=== PATIENT | female | born 1940 | race Caucasian/White ===

== ENCOUNTER → 2024-07-11 12:42 | Outpatient (CLI) | payer OTHER, SELFPAY ==
--- NOTE | 2024-07-11 12:46 | DI.MRI.S_ITS ---
PROCEDURE: MR LUMBAR SPINE WO CON INDICATIONS: Lumbar stenosis TECHNIQUE: Noncontrast sagittal T1 spin echo and T2 fast echo, sagittal STIR, and T2 fast spin echo through the lumbar spine. In cases with scoliosis, additional coronal T2 fast spin echo may be performed. COMPARISON: Outside Film, MR, MR LUMBAR SPINE WITHOUT CONTRAST, 08/10/2023, 13:20. FINDINGS: Image quality: Diagnostic Alignment and Curvature: There is normal bony alignment. Bone Marrow: Marrow is of normal overall signal. No acute vertebral body compression fractures. Spinal Cord: Conus medullaris terminates at the L1 level. Visualized cord demonstrates normal signal and size. Paraspinous Soft Tissues: No paravertebral masses. T12-L1: Bilateral facet arthropathy. Mild disc space loss and degenerative endplate changes. Symmetric disc bulge. Mild spinal canal stenosis. Moderate bilateral neuroforaminal stenosis. L1-L2: At least moderate disc space loss at this level. Degenerative endplate changes. Moderate bilateral facet arthropathy. Moderate disc bulge which causes effacement of the subarticular zone bilaterally. There appears to be abutment of the traversing nerve root. Ligamentum flavum thickening. Mild spinal canal stenosis. There is now moderate right and severe left bilateral neuroforaminal stenosis. Findings have progressed in the interim. L2-L3: Moderate bilateral facet arthropathy and ligamentum flavum thickening. Mild epidural lipomatosis. Mild disc height loss with degenerative endplate changes. Moderate symmetric disc bulge. Effacement of the subarticular zones bilaterally. There is moderate right and moderate-severe left bilateral neuroforaminal stenosis. Findings are not significantly changed. L3-L4: Minimal disc space loss. Mild degenerative endplate changes. Moderate left greater than right bilateral facet arthropathy. Mild epidural lipomatosis. Moderate symmetric disc bulge. Findings result in moderate spinal canal stenosis with severe left and moderate right bilateral neuroforaminal stenosis. Findings have progressed. L4-L5: Moderate-severe bilateral facet arthropathy. Mild disc space loss. Mild degenerative endplate changes. Prominent symmetric disc bulge. There is mild-moderate disc space loss. Mild degenerative endplate changes. There is moderate spinal canal stenosis. There is severe right and moderate left bilateral neuroforaminal stenosis. Findings have not significantly changed at this level. L5-S1: Minimal disc height loss. Moderate bilateral facet arthropathy. Eccentric to the right disc bulge. There is effacement of the right subarticular and foraminal zones. Mild-moderate degenerative endplate changes. Combination of findings result in no significant spinal canal stenosis. There is moderate left and moderate-severe right bilateral neuroforaminal stenosis. Findings have slightly progressed. IMPRESSION: Lumbar spine without acute abnormalities. Moderate-severe multilevel, multifactorial lumbar spondylosis as described above by vertebral body level. There has been mild progression of degenerative changes at L1-2, L3-4, and L5-S1. No significant changes noted at L2-3 and L4-5. Dictated by: Jeremie Bernal M.D. on 07/15/2024 at 0:37 Approved by: Jeremie Bernal M.D. on 07/15/2024 at 0:58
== END ==
PROVIDERS: PCP Family Medicine; Referring Provider Orthopaedic Surgery; Visit Provider Orthopaedic Surgery
DX: M48.062 Spinal stenosis, lumbar region with neurogenic claudication (principal); M47.816 Spondylosis without myelopathy or radiculopathy, lumbar region; M47.817 Spondylosis without myelopathy or radiculopathy, lumbosacral region
CPT/HCPCS: 72148

== ENCOUNTER → 2024-08-13 09:13 | Outpatient (CLI) | payer OTHER, SELFPAY ==
--- NOTE | 2024-08-13 | DI.MRI.S_ITS ---
PROCEDURE: MR CERVICAL SPINE WO/W CON INDICATIONS: [employer] TECHNIQUE: Noncontrast sagittal T1 spin echo and T2 fast spin echo, sagittal STIR, foraminal oblique sagittal T2 fast spin echo, axial gradient echo or T2 fast spin echo through the cervical spine. After the administration of contrast, axial and sagittal T1 spin echo with fat saturation through the cervical spine. COMPARISON: None. FINDINGS: Image quality: Excellent. Alignment and curvature: There is trace, approximately 3 millimeters of C2-C3 anterolisthesis. There is straightening normal cervical spine curvature. Marrow: Marrow is normal in overall signal, without suspicious enhancement. Spinal cord: Visualized spinal cord has normal size and signal. No cerebellar tonsillar herniation. No abnormal intramedullary enhancement. Paraspinous soft tissues: No paravertebral masses or suspicious enhancement. C2-3: Loss of disc signal. Mild left facet hypertrophy. No central stenosis. No neural foraminal narrowing. Vertebral artery vascular loop courses into the left neural foramen. No neural compression. C3-4: Loss of disc signal and mild loss of disc height. Mild, diffuse disc bulge. Mild bilateral uncovertebral hypertrophy. No central stenosis. Mild bilateral neural foraminal narrowing. No neural compression. C4-5: Loss of disc signal and height. Moderate, diffuse disc bulge. Mild bilateral facet hypertrophy. Moderate to severe narrowing of the central canal with slight compression of the cervical spinal cord. Moderate right and mild left neural foraminal narrowing. C5-6: Loss of disc signal and height. Moderate, diffuse disc bulge. Moderate-sized left central disc protrusion. Severe narrowing of the central canal with compression of the cervical spinal cord. Mild bilateral facet hypertrophy. Moderate bilateral uncovertebral joint hypertrophy. Mild to moderate bilateral neural foraminal narrowing. C6-7: Loss of disc signal and height. Moderate, diffuse disc bulge. Moderate to severe narrowing of the central canal with slight compression of the cervical spinal cord. Mild bilateral facet hypertrophy. Moderate bilateral uncovertebral joint hypertrophy. Mild to moderate right and severe left neural foraminal narrowing with compression of the exiting right C7 nerve root. C7-T1: Loss of disc signal. No central stenosis. No neural foraminal narrowing. No neural compression. IMPRESSION: Multilevel degenerative disc disease. Multilevel facet and uncovertebral arthropathy. Severe C5-C6 central canal stenosis with compression of the cervical spinal cord. Moderate to severe C4-C5 and C6-C7 central canal stenosis with slight compression of the cervical spinal cord. No suspicious postcontrast enhancement. Dictated by: Rachell Hammond MD, PhD on 08/15/2024 at 9:27 Approved by: Rachell Hammond MD, PhD on 08/15/2024 at 9:37
--- NOTE | 2024-08-13 | DI.MRI.S_ITS ---
PROCEDURE: MR HEAD/BRAIN WO/W CON INDICATIONS: [facility] TECHNIQUE: Noncontrast axial T1 spin echo, axial T2 fast spin echo, sagittal and axial FLAIR, coronal T2 fast spin echo, axial gradient echo, axial diffusion and ADC through the brain. After the administration of contrast, axial and coronal and sagittal 3D VIBE or T1 spin echo with fat saturation through the brain. COMPARISON: None. FINDINGS: Image quality: Degraded by patient motion artifact. CSF Spaces: Basal cisterns are patent. No extra-axial fluid collections. Ventricles are normal in size and shape. Brain: No midline shift. No intracranial bleeds or masses. Mild, diffuse cerebral volume loss. Minimal periventricular and subcortical white matter chronic microvascular ischemic change. No abnormal intracranial enhancement. The brainstem appears normal. Diffusion-weighted images demonstrate no acute infarct. No chronic ischemic insults. Normal intravascular flow voids are present. Skull and face: Calvarial marrow is normal in signal. Orbits appear normal. Sinuses: Sinuses and mastoids appear clear. IMPRESSION: No acute intracranial disease process. No acute or chronic infarcts. No abnormal intracranial mass or suspicious postcontrast enhancement. Dictated by: Rachell Hammond MD, PhD on 08/15/2024 at 9:24 Approved by: Rachell Hammond MD, PhD on 08/15/2024 at 9:27
--- NOTE | 2024-08-13 | DI.MRI.S_ITS ---
PROCEDURE: MR THORACIC SPINE WO/W CON INDICATIONS: [facility] TECHNIQUE: Noncontrast sagittal T1 spin echo and T2 fast spin echo, sagittal STIR, axial T1 and T2 fast spin echo through the thoracic spine. After the IV administration of 20 milliliters ProHance, axial and sagittal T1 spin echo with fat saturation through the thoracic spine. COMPARISON: None. FINDINGS: Image quality: Excellent. Alignment and curvature: There is normal bony alignment. Marrow: Modic type 2 reactive endplate changes adjacent to the T7-T8 and T9-T10 discs. No acute vertebral body compression fractures. Spinal cord: Visualized spinal cord is of normal signal and size, without abnormal enhancement. Paraspinous soft tissues: No paravertebral masses or abnormal enhancement. Partially visualized hepatic cysts. Miscellaneous: Moderate T7-T8, T8-T9 and T10-T11 degenerative disc disease. Mild degenerative disc changes throughout the remainder of the thoracic spine. Mild facet hypertrophy throughout the thoracic spine. No severe central canal stenosis. No severe neural foraminal stenosis. No neural compression. IMPRESSION: Multilevel degenerative disc disease. Multilevel facet arthropathy. No severe central canal stenosis. No severe neural foraminal stenosis. No neural compression. No suspicious postcontrast enhancement. Dictated by: Rachell Hammond MD, PhD on 08/15/2024 at 9:37 Approved by: Rachell Hammond MD, PhD on 08/15/2024 at 9:41
== END ==
LOC: MRI 09:14
PROVIDERS: PCP Family Medicine; Referring Provider Orthopaedic Surgery; Visit Provider Orthopaedic Surgery
DX: R27.0 Ataxia, unspecified (principal); M51.34 Other intervertebral disc degeneration, thoracic region; M47.814 Spondylosis without myelopathy or radiculopathy, thoracic region; M50.30 Other cervical disc degeneration, unspecified cervical region; M48.02 Spinal stenosis, cervical region; M47.812 Spondylosis without myelopathy or radiculopathy, cervical region
CPT/HCPCS: 70553; 72156; 72157; A9579